=== PATIENT | female | born 1940 | race Caucasian/White ===

== ENCOUNTER 2022-10-17 07:18 | Emergency (ER) | payer OTHER ==
--- OUTSIDE RECORDS SUMMARY | 2022-10-17 07:20 | XMS REPORT | Continuity of Care Document ---
:1940 Author Organization [facility] t Address [address] [place] [address] Care Team Providers Name Role Phone ROBERT LUBIN Attending Clinician Unavailable Payers Payer Name Policy Type Policy Number Effective Date Expiration Date S suze MEDICARE PART A [id number] 2003 \T\ B 00:00:00 FOR LIFE [id number] 2018 00:00:00 Problems This patient has no known problems. Allergies, Adverse Reactions, Alerts Allergy Allergy Status Severity Reaction(s) Onset Inactive Treating Comm ents Source Name Type Date Date Clinician EGG DRUG Active Med Hives 2017-06 [facility] INGREDI 0-19 ity of 00:00: [address] Branch IODINE Drug Active Med Swelling 2017-06 Univers AND Class 0-19 ity of IODIDE 00:00: [place] CONTAINI 00 Medical NG Branch PRODUCTS LATEX, Drug Active Med Rash 2017-06 Univers NATURAL Class 0-19 ity of RUBBER 00:00: [address] Branch PENICILL Drug Active Med Hives 2017-06 Univers INS Class 0-19 ity of 00:00: [place] [id number] Medical Branch SULFA Drug Active Med Hives 2017-06 Univers (SULFONA Class 0-19 ity of MIDE 00:00: [place] ANTIBIOT 00 Medical ICS) Branch SHRIMP DRUG Active Swelling 2017-06 Univers INGREDI 0-19 ity of 00:00: [place] 00 [facility] Branch STRAWBER DRUG Active Low Rash 2017- Univers RY INGREDI 0-19 ity of 00:00: [address] Medications This patient has no known medications. Procedures This patient has no known procedures. Encounters Start End Encounter Admission Attending Care Care Encounter Source Date/Time Date/Time Type Type Clinicians Facility Department ID 2020-08-19 2020-08-19 Outpatient R AMEE MDVAHID [facility] [id number] Univers 11:00:00 11:00:00 ROBERT [id number] [facility] 2020-08-19 2020-08-19 Outpatient Ashley LUBIN [facility] [id number] Univers 11:00:00 11:00:00 ROBERT [facility] 2020-07-29 2020-07-29 Outpatient [facility] [id number] Univers 11:00:00 11:00:00 [id number] [facility] 2020-07-29 2020-07-29 [id number] Univers 11:00:00 11:00:00 ROBERT [facility] Results This patient has no known results.
[2022-10-17] MEDS ORDERED: ONDANSETRON 4 MG/2 ML VIAL ONE (07:53)
[2022-10-17] MEDS ORDERED: PANTOPRAZOLE 40 MG INJ ONE (07:54)
[2022-10-17] MEDS ORDERED: NA CHLORIDE 0.9% 250 ML ONE ×2 (07:54→09:06)
[2022-10-17 08:00] LABS: Hematocrit 21.7 % (36.0-45.0); Lymphocytes % 13.1 % (15.3-44.8); MCV 84.5 fL (80-100); RBC Red Blood Cell Count 2.57 M/uL (3.86-4.86)
[2022-10-17 08:16] LABS: Albumin 3.3 g/dL (3.4-5.0); Bilirubin Total 0.4 mg/dL (0.2-1.0); Potassium 3.7 mEq/L (3.5-5.1); Protein, Total 7.7 g/dL (6.4-8.2)
--- NOTE | 2022-10-17 08:34 | EDPHYS ---
Physician Documentation [facility] Name: Dora Villafana Age: 82 yrs Sex: Female : 1940 Arrival Date: 10/17/2022 Time: 07:18 Bed 13 Private MD: ED Physician Josr Vuong HPI: 10/17 07:43 This 82 yrs old Female presents to ER via EMS with complaints of Vomiting. kdr 07:46 Patient has some nausea and vomiting x1 this morning. Patient vomited gastric contents kdr that appeared to be coffee-ground in nature and dark blood. Patient has not had this before. Patient family reports that she has been taking ibuprofen and Naprosyn for back pain recently. Patient otherwise is without complaint at this time.. Onset: The symptoms/episode began/occurred suddenly, just prior to arrival. Severity of symptoms: At their worst the symptoms were mild in the emergency department the symptoms are unchanged. The patient has not experienced similar symptoms in the past. The patient has not recently seen a physician. Historical: - Allergies: 07:21 PENICILLINS; kc6 07:21 Sulfa (Sulfonamide Antibiotics); kc6 07:21 Latex, Natural Rubber; kc6 07:21 Strawberries; kc6 07:21 SHELLFISH; kc6 - PMHx: 07:21 Hypertensive disorder; kc6 - PSHx: 07:21 Appendectomy; Cholecystectomy; kc6 - Immunization history:: Client reports receiving the 2nd dose of the Covid vaccine, Flu vaccine is not up to date. - Social history:: Smoking status: Patient denies any tobacco usage or history of. ROS: 07:46 Constitutional: Negative for fever, chills, and weight loss, Eyes: Negative for injury, kdr pain, redness, and discharge, ENT: Negative for injury, pain, and discharge, Neck: Negative for injury, pain, and swelling, Cardiovascular: Negative for chest pain, palpitations, and edema, Respiratory: Negative for shortness of breath, cough, wheezing, and pleuritic chest pain, Back: Negative for injury and pain, : Negative for injury, bleeding, discharge, and swelling, MS/Extremity: Negative for injury and deformity, Skin: Negative for injury, rash, and discoloration, Neuro: Negative for headache, weakness, numbness, tingling, and seizure activity. Psych: Negative for depression, anxiety, suicide ideation, homicidal ideation, and hallucinations, Allergy/Immunology: Negative for hives, rash, and allergies, Endocrine: Negative for neck swelling, polydipsia, polyuria, polyphagia, and marked weight changes, Hematologic/Lymphatic: Negative for swollen nodes, abnormal bleeding, and unusual bruising. 07:46 Abdomen/GI: Positive for nausea and vomiting, hematemesis, Negative for black/tarry stool, rectal pain, rectal bleeding. Exam: 07:50 Constitutional: This is a well developed, well nourished patient who is awake, alert, kdr and in no acute distress. Head/Face: Normocephalic, atraumatic. Eyes: Pupils equal round and reactive to light, extra-ocular motions intact. Lids and lashes normal. Conjunctiva and sclera are non-icteric and not injected. Cornea within normal limits. Periorbital areas with no swelling, redness, or edema. Neck: Trachea midline, no thyromegaly or masses palpated, and no cervical lymphadenopathy. Supple, full range of motion without nuchal rigidity, or vertebral point tenderness. No Meningismus. Chest/axilla: Normal chest wall appearance and motion. Nontender with no deformity. No lesions are appreciated. Cardiovascular: Regular rate and rhythm with a normal S1 and S2. No gallops, murmurs, or rubs. Normal PMI, no JVD. No pulse deficits. 07:50 Respiratory: Lungs have equal breath sounds bilaterally, clear to auscultation and percussion. No rales, rhonchi or wheezes noted. No increased work of breathing, no retractions or nasal flaring. Back: No spinal tenderness. No costovertebral tenderness. Full range of motion. Skin: Warm, dry with normal turgor. Normal color with no rashes, no lesions, and no evidence of cellulitis. MS/ Extremity: Pulses equal, no cyanosis. Neurovascular intact. Full, normal range of motion. Neuro: Awake and alert, GCS 15, oriented to person, place, time, and situation. Cranial nerves II-XII grossly intact. Motor strength 5/5 in all extremities. Sensory grossly intact. Cerebellar exam normal. Normal gait. Psych: Awake, alert, with orientation to person, place and time. Behavior, mood, and affect are within normal limits. 07:50 Head/face: Patient has remnants of her vomiting around her face neck and chest. Vital Signs: 07:20 BP 182 / 107; Pulse 85; Resp 18; Temp 97.7(O); Pulse Ox 100% on R/A; Weight 44.45 kg kc6 (R); Height 4 ft. 11 in. (R); Pain 0/10; 07:57 BP 181 / 94; Pulse 89; Resp 19 S; Pulse Ox 100% on R/A; Pain 0/10; kc6 08:53 BP 168 / 89; Pulse 74; Resp 18 S; Pulse Ox 97% on R/A; kc6 09:46 BP 168 / 87; Pulse 76; Resp 17 S; Pulse Ox 100% on R/A; kc6 07:20 Body Mass Index 19.79 (44.45 kg, 149.86 cm) kc6 07:20 Pain Scale: Adult kc6 07:57 Pain Scale: Adult kc6 MDM: 07:50 Data reviewed: vital signs, nurses notes, lab test result(s), radiologic studies. kdr 08:34 Patient medically screened. kdr 08:34 ED course: Patient remained stable in the ED though slightly hypertensive. Patient is kdr otherwise without complaint. I discussed the case with the hospitalist (Dr. Mendez) who concurred with transfer due to potential need for GI today without local availability.. 10/17 07:29 Order name: CBC with Diff; Complete Time: 08:27 kdr 10/17 07:29 Order name: CMP; Complete Time: 08:27 kdr 10/17 07:29 Order name: Lipase; Complete Time: 08:27 kdr 10/17 07:29 Order name: Type And Screen kdr 10/17 07:29 Order name: Urinalysis w/ reflexes; Complete Time: 09:29 kdr 10/17 09:10 Order name: ABO/RH no charge; Complete Time: 09:29 EDMS 10/17 10:31 Order name: Abdomen ; Complete Time: 11:21 EDWV 10/17 07:29 Order name: IV Saline Lock; Complete Time: 07:40 kdr 10/17 07:29 Order name: Labs collected and sent; Complete Time: 07:40 kdr Administered Medications: 07:56 Drug: Pantoprazole IVP 40 mg Route: IVP; Site: left antecubital; kc6 09:05 Follow up: Response: No adverse reaction kc6 07:56 Drug: Pantoprazole IV 8 mg/hr Route: IV; Rate: 25 ml/hr; Site: left antecubital; kc6 11:31 Follow up: Response: No adverse reaction; IV Status: Infusion continued upon transfer; kc6 IV Intake: 250ml 07:56 Drug: Ondansetron IVP 4 mg Route: IVP; Site: left antecubital; kc6 09:05 Follow up: Response: No adverse reaction; Nausea is decreased; Vomiting decreased kc6 09:12 Not Given (Physician Discretion; per MD, BP 153/85e): hydrALAZINE IVP 10 mg IVP once; kc6 Confirm hypertension prior to admin. give 2 - 5 mg doses Disposition Summary: 10/17/22 08:34 Transfer Ordered Transfer Location: [facility] kdr Reason: Higher level of care kdr Condition: Fair kdr Problem: new kdr Symptoms: are unchanged kdr Accepting Physician: Dr. Precious Alvarado(10/17/22 11:32) kc6 Diagnosis - Upper GI bleed, anemia (7.2) kdr Forms: - Medication Reconciliation Form kdr - SBAR form kdr Signatures: Dispatcher [employer] EDMS Josr Vuong MD MD kdr Dania Rios Kaitlyn, RN RN kc6 Corrections: (The following items were deleted from the chart) 07:22 07:21 Allergies: PENICILLINS; kc6 kc6 07:22 07:21 Allergies: Sulfa (Sulfonamide Antibiotics); 6 kc6 07:22 07:21 Allergies: SHELLFISH; 6 kc6 07:22 07:21 Allergies: Strawberries; 6 kc6 07:22 07:21 Allergies: Latex, Natural Rubber; 6 kc6 07:22 07:21 PMHx: None; kc6 kc6 09:41 08:34 lh kdr eb 10:31 09:58 Abdomen Pelvis W Con+CT.RAD.BRZ ordered. EDMS EDMS 11:32 09:41 Dr. Precious Alvarado eb kc6
--- NOTE | 2022-10-17 08:34 | ER ---
Nurse's Notes [facility] Name: Dora Villafana Age: 82 yrs Sex: Female : 1940 Arrival Date: 10/17/2022 Time: 07:18 Bed 13 Private MD: Diagnosis: Upper GI bleed, anemia (7.2) Presentation: 10/17 07:20 Chief complaint: EMS states: pt was lying in bed when she became nauseated and vomited kc6 approximately 1 cup of dark red blood. BGl en route 144. Coronavirus screen: Vaccine status: Patient reports receiving the 2nd dose of the covid vaccine. At this time, the client does not indicate any symptoms associated with coronavirus-19. Ebola Screen: No symptoms or risks identified at this time. Initial Sepsis Screen: Does the patient meet any 2 criteria? No. Patient's initial sepsis screen is negative. Does the patient have a suspected source of infection? No. Patient's initial sepsis screen is negative. Risk Assessment: Do you want to hurt yourself or someone else? Patient reports no desire to harm self or others. Onset of symptoms was October 17, 2022. 07:20 Method Of Arrival: EMS: [facility] kc6 07:20 Acuity: RACQUEL 3 kc6 Triage Assessment: 07:21 General: Appears in no apparent distress. comfortable, Behavior is calm, cooperative, kc6 appropriate for age. Pain: Denies pain. EENT: No signs and/or symptoms were reported regarding the EENT system. Neuro: Hunter Agitation-Sedation Scale (RASS): 0 - Alert and Calm Level of Consciousness is awake, alert, obeys commands, Oriented to person, place, time, situation, Appropriate for age. Cardiovascular: Capillary refill < 3 seconds. Respiratory: Airway is patent Trachea midline Respiratory effort is even, unlabored, Respiratory pattern is regular, symmetrical. GI: Abdomen is flat, non-distended, Bowel sounds present X 4 quads. Abd is soft and non tender X 4 quads. Reports nausea, vomiting, Patient currently denies bloody stool, diarrhea. : No signs and/or symptoms were reported regarding the genitourinary system. Derm: No signs and/or symptoms reported regarding the dermatologic system. Skin is intact, Skin is dry, Skin is pale, Skin temperature is warm. Musculoskeletal: No signs and/or symptoms reported regarding the musculoskeletal system. Circulation, motion, and sensation intact. Capillary refill < 3 seconds, Range of motion: intact in all extremities. Historical: - Allergies: 07:21 PENICILLINS; kc6 07:21 Sulfa (Sulfonamide Antibiotics); kc6 07:21 Latex, Natural Rubber; kc6 07:21 Strawberries; kc6 07:21 SHELLFISH; kc6 - PMHx: 07:21 Hypertensive disorder; kc6 - PSHx: 07:21 Appendectomy; Cholecystectomy; kc6 - Immunization history:: Client reports receiving the 2nd dose of the Covid vaccine, Flu vaccine is not up to date. - Social history:: Smoking status: Patient denies any tobacco usage or history of. Screenin:24 [facility] ED Fall Risk Assessment (Adult) History of falling in the last 3 months, kc6 including since admission No falls in past 3 months (0 pts) Confusion or Disorientation No (0 pts) Intoxicated or Sedated No (0 pts) Impaired Gait No (0 pts) Mobility Assist Device Used No (0 pt) Altered Elimination No (0 pt) Score/Fall Risk Level 0 - 2 = Low Risk Oriented to surroundings, Maintained a safe environment, Educated pt \T\ family on fall prevention, incl call for assistance when getting out of bed, Assessed \T\ reinforced patient's understanding of fall precautions, Hourly rounding (assess needs \T\ fall precautionary measures) done. Abuse screen: Denies threats or abuse. Denies injuries from another. Nutritional screening: No deficits noted. Tuberculosis screening: No symptoms or risk factors identified. Assessment: 07:24 Reassessment: please see triage assessment. kc6 08:24 Reassessment: Patient appears in no apparent distress at this time. No changes from 6 previously documented assessment. Patient and/or family updated on plan of care and expected duration. Pain level reassessed. Patient is alert, oriented x 3, equal unlabored respirations, skin warm/dry/pink. 09:24 Reassessment: Patient appears in no apparent distress at this time. No changes from [facility] previously documented assessment. Patient and/or family updated on plan of care and expected duration. Pain level reassessed. Patient is alert, oriented x 3, equal unlabored respirations, skin warm/dry/pink. 09:54 Reassessment: per Dr. Rittger, hold blood transfusion. blood sent back to outside lab. kc6 Vital Signs: 07:20 BP 182 / 107; Pulse 85; Resp 18; Temp 97.7(O); Pulse Ox 100% on R/A; Weight 44.45 kg kc6 (R); Height 4 ft. 11 in. (R); Pain 0/10; 07:57 BP 181 / 94; Pulse 89; Resp 19 S; Pulse Ox 100% on R/A; Pain 0/10; kc6 08:53 BP 168 / 89; Pulse 74; Resp 18 S; Pulse Ox 97% on R/A; kc6 09:46 BP 168 / 87; Pulse 76; Resp 17 S; Pulse Ox 100% on R/A; kc6 07:20 Body Mass Index 19.79 (44.45 kg, 149.86 cm) kc6 07:20 Pain Scale: Adult kc6 07:57 Pain Scale: Adult kc6 ED Course: 07:19 Patient arrived in ED. kc6 07:21 Triage completed. kc6 07:21 Arm band placed on. kc6 07:23 Patient has correct armband on for positive identification. Placed in gown. Bed in low kc6 position. Call light in reach. Side rails up X2. Adult w/ patient. 07:24 Tia Raya RN is Primary Nurse. kc6 07:28 Josr Vuong MD is Attending Physician. kdr 07:41 Missed attempt(s): 20 gauge in right antecubital area. Inserted saline lock: 20 gauge kc6 in left antecubital area, using aseptic technique. Blood collected. 08:39 initiated a transfer with Kika Ríos Rn from the [facility]. eb 08:53 Urinalysis w/ reflexes Sent. kc6 08:53 Inserted saline lock: 20 gauge in right forearm, using aseptic technique. Blood kc6 collected. 09:[address] Alvarado the hospitalist economic consultant for [facility] with Dr. Vuong for eb patient transfer consultation. 10:16 No provider procedures requiring assistance completed. kc6 10:37 Abdomen In Process Unspecified. EDMS 11:31 Patient transferred, IV remains in place. kc6 Administered Medications: 07:56 Drug: Pantoprazole IVP 40 mg Route: IVP; Site: left antecubital; kc6 09:05 Follow up: Response: No adverse reaction kc6 07:56 Drug: Pantoprazole IV 8 mg/hr Route: IV; Rate: 25 ml/hr; Site: left antecubital; kc6 11:31 Follow up: Response: No adverse reaction; IV Status: Infusion continued upon transfer; kc6 IV Intake: 250ml 07:56 Drug: Ondansetron IVP 4 mg Route: IVP; Site: left antecubital; kc6 09:05 Follow up: Response: No adverse reaction; Nausea is decreased; Vomiting decreased kc6 09:12 Not Given (Physician Discretion; per MD, BP 153/85e): hydrALAZINE IVP 10 mg IVP once; kc6 Confirm hypertension prior to admin. give 2 - 5 mg doses Medication: 11:31 VIS not applicable for this client. kc6 Intake: 11:31 IV: 250ml; Total: 250ml. kc6 Outcome: 08:34 ER care complete, transfer ordered by . [facility] 11:31 Transferred by ground EMS to [facility], Transfer form completed. kc6 Note: report called to MAR Arteaga. pt transferred via [facility] 11:31 Condition: stable 11:31 Instructed on the need for transfer. 11:32 Patient left the ED. kc6 Signatures: Dispatcher [employer] EDMS Josr Vuong MD MD kdr Botello, Elizabeth eb Campbell, Kaitlyn, RN RN kc6 Corrections: (The following items were deleted from the chart) 07:22 07:21 Allergies: PENICILLINS; 6 kc6 07:22 07:21 Allergies: Sulfa (Sulfonamide Antibiotics); kc6 kc6 07:22 07:21 Allergies: SHELLFISH; kc6 kc6 07:22 07:21 Allergies: Strawberries; kc6 kc6 07:22 07:21 Allergies: Latex, Natural Rubber; kc6 kc6 07:22 07:21 PMHx: None; kc6 kc6
[2022-10-17 09:08] LABS: Specific Gravity 1.017 (1.005-1.030); Urine Bacteria >50 /HPF (<20); Urine Bilirubin NEGATIVE (Negative); Urine Blood 1+ (Negative); Urine Clarity Turbid (Clear); Urine Color Light-Yellow (Yellow); Urine Glucose NEGATIVE (Negative); Urine Mucus Slight /HPF (None Seen); Urine Protein 1+ (Negative); Urine RBC <5 /HPF (None Seen); Urine Urobilinogen Normal (Normal); Urine pH 6.5 (5.0-7.0)
--- NOTE | 2022-10-17 10:59 | RAD REPORT ---
EXAM DESCRIPTION: CT - Abdomen Pelvis Wo Contrast - 10/17/2022 10:35 am CLINICAL HISTORY: Abdominal pain. ABD PAIN COMPARISON: No comparisons TECHNIQUE: CT imaging of the abdomen and pelvis was performed without contrast. Solid organ, bowel a nd vascular assessment is limited due to lack of IV and oral contrast. All CT scans are performed using dose optimization technique as appropriate and may include automated exposure control or mA/KV adjustment according to patient size. FINDINGS: The lower lung lyn are clear.Cholecystectomy clips. The liver, spleen, pancreas, adrenal glands and kidneys are within normal limits for a limited non-co ntrast examination.4.2 cm left renal cyst. Aortic atherosclerosis. No bowel obstruction, free air, free fluid or abscess. Nonvisualized appendix. Sigmoid diverticulosis coli without diverticulitis. The osseous structures are within normal limits. IMPRESSION: No acute intra-abdominal or pelvic findings. A limited non-contrast examination was performed as detailed.
[2022-10-17 11:37] VITALS: TEMP 97.7
[2022-10-17 11:42] VITALS: BP 168/87; O2SAT 100
== END 2022-10-17 11:32 | disposition short-term general hospital (02) ==
LOC: ER 07:18
DX: D64.9 Anemia, unspecified (principal); I10 Essential (primary) hypertension; Z88.0 Allergy status to penicillin; Z88.2 Allergy status to sulfonamides; Z88.8 Allergy status to other drugs, medicaments and biological substances; Z91.013 Allergy to seafood; Z91.018 Allergy to other foods; Z91.040 Latex allergy status; Z91.048 Other nonmedicinal substance allergy status
CPT/HCPCS: 96365; 85025; 81001; 36415; 86900; 86850; 86901; 86920; 83690; 80053; 74176; 96375; 99285; 96366; C9113; J2405; J7050 ×2